=== PATIENT | male | born 1975 | race Caucasian/White ===

== ENCOUNTER → 2017-07-20 | Outpatient (CLI) | payer OTHER ==
--- NOTE | 2017-07-20 12:20 | US ---
EXAMINATION TYPE: US liver DATE OF EXAM: 07/20/2017 COMPARISON: NONE CLINICAL HISTORY: 42-year-old male K74.60 Cirrhosis of liver. TECHNIQUE: Multiple sonographic images of the right upper quadrant are obtained. FINDINGS: Liver Length: 16.0 cm Gallbladder Wall: 0.2 cm CBD: 0.4 cm Right Kidney: 13.1 x 6.5 x 6.8 cm Pancreas: obscured by overlying midline bowel gas Liver: scanned intercostally, limited by rib shadowing, visualized portions appear heterogeneous, ec hogenic and attenuating with a 1.4cm hypoechoic area adjacent to the gallbladder compatible with foca l fatty sparing. Gallbladder: wnl Evidence for sonographic De La O's sign: no CBD: visualized portions wnl, limited by overlying bowel gas Right Kidney: no hydronephrosis. IMPRESSION: 1. Limited intercostal views of the liver. Findings suggest moderate to advanced hepatic steatosis or underlying cirrhosis correlate with LFTs, lipid profile, and patient risk factors. 2. A 1.4 cm hypoechoic area adjacent to the gallbladder is suspected to represent focal fatty sparing rather than a mass. 3-6 month follow-up ultrasound can be performed even the patient's history of ci rrhosis. 3. No biliary ductal dilatation.
== END | disposition home or self-care (01) ==
LOC: RADUSWWP 08:54
PROVIDERS: ATTEND Family Medicine
DX: K74.60 Unspecified cirrhosis of liver (principal)
CPT/HCPCS: 76705

== ENCOUNTER → 2019-11-04 | Outpatient (CLI) | payer OTHER ==
--- NOTE | 2019-11-05 17:20 | US ---
EXAMINATION TYPE: US groin LT DATE OF EXAM: 11/04/2019 COMPARISON: NONE CLINICAL HISTORY: K40.90 Left inguinal hernia. Pt states swelling/lump left groin extending into left scrotum Left groin and left scrotum imaged/ On valsalva maneuver there was no evidence of hernia No evidence of lipoma Probable left sided varicocele within left scrotum IMPRESSION: 1. Left-sided varicoceles likely present. No inguinal hernia is evident
== END | disposition home or self-care (01) ==
LOC: RADUSWWP 16:46
PROVIDERS: ATTEND Family Medicine
DX: K40.90 Unilateral inguinal hernia, without obstruction or gangrene, not specified as recurrent (principal)

== ENCOUNTER → 2020-12-28 | Outpatient (CLI) | payer OTHER ==
[2020-12-28 14:15] LABS: Creatine Kinase MB 2.4 ng/mL (0.0-2.4); Troponin I <0.012 ng/mL (0.000-0.034)
== END | disposition home or self-care (01) ==
LOC: LABWHC1 13:03
PROVIDERS: ATTEND Physician Assistant
DX: R07.89 Other chest pain (principal)
CPT/HCPCS: 36415; 82550; 82553; 84484

== ENCOUNTER 2021-03-09 11:26 | Emergency (ER) | payer OTHER ==
[2021-03-09 11:35] VITALS: BP 162/94; PULSE 63; RESP 16; TEMP 98
--- NOTE | 2021-03-09 12:19 | ED ---
General Adult HPI - General Chief complaint: Recheck/Abnormal Lab/Rx Stated complaint: recast foot Time Seen by Provider: 03/09/21 11:41 Source: patient, RN notes reviewed Mode of arrival: ambulatory Limitations: no limitations - History of Present Illness Initial comments: 45-year-old male presents emergency Department with chief complaint of needing c ast on his foot. Patient states that he been getting wound dressings, casting weekly for diabetic ulcer on his toe. Patient states he is actually thrown into a fall yesterday and states that it cleared up with is wet. Patient is scheduled go back on Thursday. He states that they put some sort of medicated patch over it and states that it's wrapped along with a boot - Related Data Allergies Allergy/AdvReac Type Severity Reaction Status Date / Time No Known Allergies Allergy Verified 03/09/21 11:32 Review of Systems ROS Statement: Those systems with pertinent positive or pertinent negative responses have been documented in the HPI. ROS Other: All systems not noted in ROS Statement are negative. Past Medical History Past Medical History: Diabetes Mellitus History of Any Multi-Drug Resistant Organisms: None Reported Past Psychological History: No Psychological Hx Reported Smoking Status: Never smoker Past Alcohol Use History: Occasional Past Drug Use History: None Reported General Exam Limitations: no limitations General appearance: alert, in no apparent distress Head exam: Present: atraumatic, normocephalic, normal inspection Respiratory exam: Present: normal lung sounds bilaterally. Absent: respiratory distress, wheezes, rales, rhonchi, stridor Cardiovascular Exam: Present: regular rate, normal rhythm, normal heart sounds. Absent: systolic murmur, diastolic murmur, rubs, gallop, clicks Extremities exam: Present: other (Right foot first digit there is a healing sore noted with no significant erythema no purulent drainage) Course Vital Signs 03/09/21 11:32 Temperature 98 F Pulse Rate 63 Respiratory 16 Rate Blood Pressure 162/94 O2 Sat by Pulse 97 Oximetry Procedures - Orthopedic Splinting/Casting Injury #1 Side: right Lower Extremity Injury Location: short leg, foot Lower Extremity Immobilizer: posterior splint, synthetic pre-padded splint Additional Comments: puracol and optifoam was applied Medical Decision Making - Medical Decision Making temporary splint was applied along with puracol and optifoam. Patient will contact wound care on Thursday Disposition Clinical Impression: Wound of foot Disposition: HOME SELF-CARE Condition: Stable Additional Instructions: Please return to the Emergency Department if symptoms worsen or any other concerns. Is patient prescribed a controlled substance at d/c from ED?: No Referrals: Seth Hammond MD [Primary Care Provider] - 1-2 days Time of Disposition: 12:38
== END 2021-03-09 12:40 | disposition home or self-care (01) ==
LOC: EC 11:26
DX: E11.621 Type 2 diabetes mellitus with foot ulcer (principal); L97.519 Non-pressure chronic ulcer of other part of right foot with unspecified severity
CPT/HCPCS: 29515; 99283

== ENCOUNTER 2021-09-08 17:33 | Observation (INO) | payer OTHER ==
[2021-09-08] MEDS ORDERED: ASPIRIN 81 MG PO STA (18:11)
[2021-09-08] MEDS ORDERED: SODIUM CHLORIDE 0.9% 500 ML 500 ML IV STA (18:11)
[2021-09-08] MEDS ORDERED: NITROGLYCERIN OINT 1 INCH/GM PACKET TOPICAL STA (18:11)
--- NOTE | 2021-09-08 18:16 | ED ---
General Adult HPI - General Chief complaint: Chest Pain Stated complaint: Chest Pain Time Seen by Provider: 09/08/21 18:00 Source: patient, EMS, RN notes reviewed, old records reviewed Mode of arrival: EMS Limitations: no limitations - History of Present Illness Initial comments: Well-appearing 46-year-old male, alert and oriented 4, presents to the em ergency room with complaints of chest pain that started approximately 2 hours ago while shoveling snow. Patient states that he has had this type of pain in the past and was told it was angina. He states that he was seen at [facility] at that time. He does have a history of [id number] diabetes but states is not always compliant with his medications. He was given nitroglycerin by EMS with some relief. He states that he has had pain while resting in the ER but is not as severe. He denies any fevers, nausea vomiting or diarrhea. His father did have a heart attack in his 40s. Patient also states he has a diabetic foot ulcer on his great toe right side that he has been managing with Neosporin twice a day and states it is looking better. -: hour(s) (2) Location: chest Severity scale (1-10): 4 Quality: other (pressure) Consistency: constant Improves with: rest Worsens with: other (exertion) Associated Symptoms: denies other symptoms Treatments Prior to Arrival: other (nitro) - Related Data Home Medications Medication Instructions Recorded Confirmed Atorvastatin [Lipitor] 10 mg PO DAILY 09/08/21 09/08/21 Canagliflozin [Invokana] 300 mg PO DAILY 09/08/21 09/08/21 Dulaglutide [Trulicity] 1.5 mg SQ SA 09/08/21 09/08/21 Empagliflozin/Metformin HCl 1 tab PO BID 09/08/21 09/08/21 [Synjardy 12.5-1,000 mg Tablet] Tadalafil [Cialis] 20 mg PO DAILY PRN 09/08/21 09/08/21 glipiZIDE XL [Glucotrol Xl] 5 mg PO DAILY 09/08/21 09/08/21 lisinopriL 40 mg PO DAILY 09/08/21 09/08/21 Allergies Allergy/AdvReac Type Severity Reaction Status Date / Time No Known Allergies Allergy Verified 09/08/21 18:33 Review of Systems ROS Statement: Those systems with pertinent positive or pertinent negative responses have been documented in the HPI. ROS Other: All systems not noted in ROS Statement are negative. Past Medical History Past Medical History: Diabetes Mellitus History of Any Multi-Drug Resistant Organisms: None Reported Past Psychological History: No Psychological Hx Reported Smoking Status: Never smoker Past Alcohol Use History: Occasional Past Drug Use History: None Reported General Exam Limitations: no limitations General appearance: alert, in no apparent distress Head exam: Present: atraumatic, normocephalic, normal inspection Eye exam: Present: normal appearance, EOMI. Absent: scleral icterus, conjunct ival injection Neck exam: Present: full ROM. Absent: tenderness, meningismus, lymphadenopathy, thyromegaly Respiratory exam: Present: normal lung sounds bilaterally. Absent: respiratory distress, wheezes, rales, rhonchi, stridor, chest wall tenderness, accessory muscle use, decreased breath sounds Cardiovascular Exam: Present: regular rate, normal rhythm, normal heart sounds. Absent: systolic murmur, diastolic murmur, rubs, gallop, clicks, JVD GI/Abdominal exam: Present: soft, normal bowel sounds. Absent: distended, tenderness, guarding, rebound, rigid Extremities exam: Present: full ROM, normal capillary refill. Absent: tenderness, pedal edema, joint swelling, calf tenderness Back exam: Present: normal inspection, full ROM. Absent: tenderness, CVA tenderness (R), CVA tenderness (L), rash noted Neurological exam: Present: alert, oriented X3 Psychiatric exam: Present: normal affect, normal mood Skin exam: Present: warm, dry, normal color, other (Diabetic foot ulcer to the bottom of the right great toe approximately 2cm circular). Absent: rash, cyanosis, diaphoretic, petechiae, pallor Course Vital Signs 09/08/21 17:49 Temperature 98.8 F Pulse Rate 88 Respiratory 18 Rate Blood Pressure 126/70 O2 Sat by Pulse 97 Oximetry EKG Findings - EKG Results: EKG: sinus rhythm (Ventricular rate 82, OK interval 0.168, QRS 0.94, QTC 0.4-2) Medical Decision Making - Medical Decision Making 46-year-old male presents with complaints of chest pain that started approximately 2 hours ago while shoveling snow. Patient states he has a history of angina. He has a history of diabetes and is not always compliant with his medications. He was given nitroglycerin by EMS with some relief. He states that he has had pain while resting in the ER but is not as severe. His father did have a heart attack in his 40s. Chest x-ray shows normal mediastinum and lungs are clear. CBC is unremarkable. Electrolytes within normal limits. Patient states that this chest pain started approximately 2 hours prior to coming to the emergency room while shoveling. Pain lasted greater than 20 mi nutes. HEART score of 5 with family history, obesity, and diabetes. His troponin is elevated at 0.013, there is no ST elevation noted. There is no old EKG to compare. Patient was given 4 baby aspirin, is pain-free at this time and on a heparin drip with 1 inch Nitropaste. He'll be admitted for ACS with cardiology consult. Case was discussed with Dr. Adams. - Lab Data Result diagrams: 09/08/21 18:19 09/08/21 18:19 Lab Results 09/08/21 09/08/21 09/08/21 Range/Units 18:19 18:19 18:19 WBC 6.9 (3.8-10.6) k/uL RBC 5.34 (4.30-5.90) m/uL Hgb 16.3 (13.0-17.5) gm/dL Hct 46.5 (39.0-53.0) % MCV 87.0 (80.0-100.0) fL MCH 30.5 (25.0-35.0) pg MCHC 35.1 (31.0-37.0) g/dL RDW 13.7 (11.5-15.5) % Plt Count 149 L (150-450) k/uL MPV 9.2 Neutrophils % 71 % Lymphocytes % 19 % Monocytes % 7 % Eosinophils % 2 % Basophils % 1 % Neutrophils # 4.9 (1.3-7.7) k/uL Lymphocytes # 1.3 (1.0-4.8) k/uL Monocytes # 0.5 (0-1.0) k/uL Eosinophils # 0.1 (0-0.7) k/uL Basophils # 0.0 (0-0.2) k/uL PT 11.2 (9.0-12.0) sec INR 1.1 (<1.2) APTT 25.0 (22.0-30.0) sec Sodium 137 (137-145) mmol/L Potassium 4.0 (3.5-5.1) mmol/L Chloride 103 (98-107) mmol/L Carbon Dioxide 24 (22-30) mmol/L Anion Gap 10 mmol/L BUN 11 (9-20) mg/dL Creatinine 0.92 (0.66-1.25) mg/dL Est GFR (CKD-EPI)AfAm >90 (>60 ml/min/1.73 sqM) Est GFR (CKD-EPI)NonAf >90 (>60 ml/min/1.73 sqM) Glucose 127 H (74-99) mg/dL Calcium 9.3 (8.4-10.2) mg/dL Magnesium 1.9 (1.6-2.3) mg/dL Total Bilirubin 1.5 H (0.2-1.3) mg/dL AST 27 (17-59) U/L ALT 26 (4-49) U/L Alkaline Phosphatase 53 (38-126) U/L Troponin I (0.000-0.034) ng/mL Total Protein 7.1 (6.3-8.2) g/dL Albumin 4.2 (3.5-5.0) g/dL 09/08/21 Range/Units 18:19 WBC (3.8-10.6) k/uL RBC (4.30-5.90) m/uL Hgb (13.0-17.5) gm/dL Hct (39.0-53.0) % MCV (80.0-100.0) fL MCH (25.0-35.0) pg MCHC (31.0-37.0) g/dL RDW (11.5-15.5) % Plt Count (150-450) k/uL MPV Neutrophils % % Lymphocytes % % Monocytes % % Eosinophils % % Basophils % % Neutrophils # (1.3-7.7) k/uL Lymphocytes # (1.0-4.8) k/uL Monocytes # (0-1.0) k/uL Eosinophils # (0-0.7) k/uL Basophils # (0-0.2) k/uL PT (9.0-12.0) sec INR (<1.2) APTT (22.0-30.0) sec Sodium (137-145) mmol/L Potassium (3.5-5.1) mmol/L Chloride (98-107) mmol/L Carbon Dioxide (22-30) mmol/L Anion Gap mmol/L BUN (9-20) mg/dL Creatinine (0.66-1.25) mg/dL Est GFR (CKD-EPI)AfAm (>60 ml/min/1.73 sqM) Est GFR (CKD-EPI)NonAf (>60 ml/min/1.73 sqM) Glucose (74-99) mg/dL Calcium (8.4-10.2) mg/dL Magnesium (1.6-2.3) mg/dL Total Bilirubin (0.2-1.3) mg/dL AST (17-59) U/L ALT (4-49) U/L Alkaline Phosphatase (38-126) U/L Troponin I 0.013 (0.000-0.034) ng/mL Total Protein (6.3-8.2) g/dL Albumin (3.5-5.0) g/dL Disposition Clinical Impression: ACS (acute coronary syndrome) Disposition: ADMITTED IP TO THIS [facility] Decision Date: 09/08/21 Decision Time: 18:57
[2021-09-08 18:27] LABS: Basophils % (A) 1 %; Eosinophils # (A) 0.1 k/uL (0-0.7); Eosinophils % (A) 2 %; HCT 46.5 % (39.0-53.0); HGB 16.3 gm/dL (13.0-17.5); Lymphocytes # (A) 1.3 k/uL (1.0-4.8); Lymphocytes % (A) 19 %; MCH 30.5 pg (25.0-35.0); MCHC 35.1 g/dL (31.0-37.0); Mean Platelet Volume 9.2; Monocytes # (A) 0.5 k/uL (0-1.0); Monocytes % (A) 7 %; Neutrophils # (A) 4.9 k/uL (1.3-7.7); Neutrophils % (A) 71 %; Platelet Count 149 k/uL (150-450); RBC 5.34 m/uL (4.30-5.90); RDW 13.7 % (11.5-15.5); WBC 6.9 k/uL (3.8-10.6)
[2021-09-08 18:36] LABS: ALT 26 U/L (4-49); AST 27 U/L (17-59); African American GFR (CKD) >90 (>60 ml/min/1.73 sqM); Albumin 4.2 g/dL (3.5-5.0); Alkaline Phosphatase 53 U/L (38-126); Anion Gap 10 mmol/L; Blood Urea Nitrogen 11 mg/dL (9-20); Calcium 9.3 mg/dL (8.4-10.2); Carbon Dioxide 24 mmol/L (22-30); Chloride 103 mmol/L (98-107); Glucose 127 mg/dL (74-99); Magnesium 1.9 mg/dL (1.6-2.3); Non-African American GFR(CKD) >90 (>60 ml/min/1.73 sqM); Sodium 137 mmol/L (137-145); Total Bilirubin 1.5 mg/dL (0.2-1.3); Total Protein 7.1 g/dL (6.3-8.2)
[2021-09-08 18:40] LABS: INR 1.1 (<1.2); Prothrombin Time 11.2 sec (9.0-12.0)
--- NOTE | 2021-09-08 18:48 | XR ---
EXAMINATION TYPE: XR chest 2V DATE OF EXAM: 09/08/2021 COMPARISON: NONE HISTORY: Chest pain TECHNIQUE: 2 views FINDINGS: Heart and mediastinum are normal. Lungs are clear. Diaphragm is normal. Bony thorax is inta ct. IMPRESSION: Normal chest.
[2021-09-08] MEDS ORDERED: HEPARIN SODIUM 1,000 UN/ML (10ML VL) IV ONE (18:56)
[2021-09-08] MEDS ORDERED: HEPARIN SOD,PORK IN 0.45% NACL 25,000 UNIT in 0.45% NACL 1 250ML.BAG IV SCH (19:00)
[2021-09-08] MEDS ORDERED: MAGNESIUM OXIDE 400 MG TAB PO STA (19:01)
[2021-09-08] MEDS ORDERED: ACETAMINOPHEN TAB 325 MG TAB PO PRN (19:03)
[2021-09-08] MEDS ORDERED: NALOXONE 0.4 MG/ML 1 ML VIAL IV PRN (19:03)
[2021-09-08] MEDS: SODIUM CHLORIDE 0.9% 1,000 ML IV SCH (19:13)
[2021-09-08] MEDS ORDERED: NON FORMULARY DRUG (Empagliflozin/Metformin Hcl [Synjardy 12.5-1,000 Mg Tablet] 1 EACH Tab PO SCH (21:00)
--- NOTE | 2021-09-09 | P.HPIM ---
History of Present Illness H&P Date: 09/08/21 Chief Complaint: chest pain 46 year old male with hypertension and DM patient presented with sudden onset central chest pain radiating to the shoulders while shoveling snow, he denies any exertional dyspnea at baseline, he experienced sharp pain central radiating to both shoulders, 8/10 in severity , associated with SOB, nausea, sweating , and lightheadedness. he never had any cardiac workup done, he denies any smoking, or illegal drugs. patient does have history of DM and hypertension , he is not on daily aspirin, he has family history of premature CAD in his father patients adds, that he has a diabetic foot ulcer in his right great toe, that his PCP has been following up on , denies any fever, chills, or drainage in the ED initial workup unremarkable , trops negative , EKG NSR Review of Systems Pertinent positives as noted in HPI. All other systems were reviewed and are negative Past Medical History Past Medical History: Diabetes Mellitus History of Any Multi-Drug Resistant Organisms: None Reported Past Psychological History: No Psychological Hx Reported Smoking Status: Never smoker Past Alcohol Use History: Occasional Past Drug Use History: None Reported - Past Family History Family Additional Family Medical History / Comment(s): Father with premature CAD Medications and Allergies Home Medications Medication Instructions Recorded Confirmed Type Atorvastatin [Lipitor] 10 mg PO DAILY 09/08/21 09/08/21 History Canagliflozin [Invokana] 300 mg PO DAILY 09/08/21 09/08/21 History Dulaglutide [Trulicity] 1.5 mg SQ SA 09/08/21 09/08/21 History Empagliflozin/Metformin HCl 1 tab PO BID 09/08/21 09/08/21 History [Synjardy 12.5-1,000 mg Tablet] Tadalafil [Cialis] 20 mg PO DAILY PRN 09/08/21 09/08/21 History glipiZIDE XL [Glucotrol Xl] 5 mg PO DAILY 09/08/21 09/08/21 History lisinopriL 40 mg PO DAILY 09/08/21 09/08/21 History Allergies Allergy/AdvReac Type Severity Reaction Status Date / Time No Known Allergies Allergy Verified 09/08/21 18:33 Physical Exam Vitals: Vital Signs Temp Pulse Resp BP Pulse Ox 09/08/21 21:15 77 18 106/58 96 09/08/21 17:49 98.8 F 88 18 126/70 97 Intake and Output 09/08/21 09/08/21 09/09/21 14:59 22:59 06:59 Other: Weight 124.738 kg Constitutional: No acute distress, conversant, pleasant Eyes: Anicteric sclerae, moist conjunctiva, Pupils equal round reactive to light ENMT: NC/AT Oropharynx clear, no erythema, or exudates Neck: Supple, no masses, or JVD No carotid bruits No thyromegaly Lungs: Clear to auscultation Clear to percussion Normal respiratory effort, no accessory muscle use Cardiovascular: Heart regular in rate and rhythm, No murmurs, gallops, or rubs No peripheral edema Abdominal: Soft Nontender, no guarding, rebound or rigidity Abdomen moving with respiration Normoactive bowel sounds No hepatomegaly, No splenomegaly No palpable mass No abdominal wall hernia noted Skin: There is around 2 x 2 ulcer over the ventral aspect of the right great toe no drainage no surrounding erythema or induration , otherwise Normal temperature, tone, texture, turgor No induration No subcutaneous nodules Extremities: No digital cyanosis No clubbing Pedal pulses intact and symmetrical Radial pulses intact and symmetrical No calf tenderness Psychiatric: Alert and oriented to person, place and time Appropriate affect fair judgement Neuro Muscles Strength 5/5 in all 4 extremities Sensation to light touch grossly present throughout Cranial nerves II-XII grossly intact No focal sensory deficits Lymphatics: no palpable cervical or supraclavicular , or inguinal lymph nodes Results CBC & Chem 7: 09/08/21 18:19 09/08/21 18:19 Labs: Abnormal Lab Results - Last 24 Hours (Table) 09/08/21 09/08/21 Range/Units 18:19 18:19 Plt Count 149 L (150-450) k/uL Glucose 127 H (74-99) mg/dL Total Bilirubin 1.5 H (0.2-1.3) mg/dL Assessment and Plan Assessment: Chest pain rule out ACS Cardiac monitoring Trend troponins Cardiology consult Aspirin/statin Check lipid profile Check echocardiogram Cardiology consult Pain control with nitro Heparin drip Diabetes mellitus Insulin sliding scale Hold oral hypoglycemic agents Diabetic foot ulcer right great toe Local wound care Patient is full code DVT prophylaxis currently on heparin drip Anticipated length of stay less than 2 midnights
[2021-09-09] MEDS ORDERED: HEPARIN SODIUM 1,000 UN/ML (10ML VL) IV ONE (03:55)
[2021-09-09] MEDS ORDERED: INSULIN ASPART (NovoLOG) 100 UNIT/ML VIAL SQ SCH (07:30)
[2021-09-09] MEDS ORDERED: NON FORMULARY DRUG (Canagliflozin [Invokana] 300 MG Tablet) PO SCH (09:00)
[2021-09-09 09:06] LABS: Glucose,Whole Blood 87 mg/dL (75-99)
[2021-09-09] MEDS: INSULIN ASPART (NovoLOG) 100 UNIT/ML VIAL SQ SCH ×4 (09:09→21:47)
[2021-09-09] MEDS: ATORVASTATIN 10 MG TAB PO SCH (09:20)
[2021-09-09] MEDS: lisinopriL 20 MG TAB PO SCH (09:20)
[2021-09-09] MEDS: SODIUM CHLORIDE 0.9% 1,000 ML IV SCH ×3 (09:22→22:17)
[2021-09-09 10:21] LABS: HCT 50.3 % (39.0-53.0); MCH 30.4 pg (25.0-35.0); MCHC 33.9 g/dL (31.0-37.0); MCV 89.7 fL (80.0-100.0); Mean Platelet Volume 8.8; Platelet Count 145 k/uL (150-450); RBC 5.61 m/uL (4.30-5.90); WBC 7.3 k/uL (3.8-10.6)
[2021-09-09 10:32] LABS: ALT 28 U/L (4-49); AST 33 U/L (17-59); African American GFR (CKD) 89 (>60 ml/min/1.73 sqM); Albumin 4.4 g/dL (3.5-5.0); Albumin/Globulin Ratio 1.5; Alkaline Phosphatase 60 U/L (38-126); Anion Gap 11 mmol/L; Blood Urea Nitrogen 12 mg/dL (9-20); Calcium 9.1 mg/dL (8.4-10.2); Carbon Dioxide 27 mmol/L (22-30); Chloride 103 mmol/L (98-107); Globulin 2.9 g/dL; Glucose 98 mg/dL (74-99); Magnesium 1.9 mg/dL (1.6-2.3); Non-African American GFR(CKD) 77 (>60 ml/min/1.73 sqM); Potassium 4.1 mmol/L (3.5-5.1); Sodium 141 mmol/L (137-145); Total Bilirubin 1.5 mg/dL (0.2-1.3); Total Protein 7.3 g/dL (6.3-8.2)
--- NOTE | 2021-09-09 12:00 | P.CRDCN ---
History of Present Illness History of present illness: This is a 46 year old male with a past medical history of type 2 diabetes and hypertension. 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 We are consulted for chest pain. Patient states yesterday around 2:00PM he was shoveling snow. After shoveling, he had an episode of midsternal/left sided chest pain. Describes it as sore/pressure. Thought it was a "pulled muscle" feeling. It resolved after a couple hours. It was non-radiating. Radiating to his back between his shoulder blades. He had some mild shortness of breath. He denies nausea, vomiting, lightheadedness, dizziness, syncope or near syncope. Denies fever, chills or cough. He was mildly diaphoretic. Denies tobacco use or illicit drug use. Occasionally drinks alcohol. Family history includes father had IL in his 40s. DIAGNOSTICS EKG reveals sinus rhythm, heart rate 82, T wave inversion in leads III an avF, no prior EKG to compare, no significant ST-T wave abnormalities Chest xray no acute cardiopulmonary process. Laboratory reviewed, troponin negative 3, sodium 137, potassium 4.0, BUN 11, serum creatinine 0.9, magnesium 1.9, total bilirubin 1.5, covid-19 negative Current home medications include lisinopril 40 mg daily, glipizide, Synjardy, Trulicity, Invokana, atorvastatin 10 mg daily REVIEW OF SYSTEMS At the time of my exam: CONSTITUTIONAL: Denies fever or chills. CARDIOVASCULAR: Denies chest pain, shortness of breath, orthopnea, PND or palpitations. RESPIRATORY: Denies cough. GASTROINTESTINAL: Denies abdominal pain, diarrhea, constipation, nausea or vomiting. MUSCULOSKELETAL: Denies myalgias. NEUROLOGIC: Denies numbness, tingling, headache or weakness. ENDOCRINE: Denies fatigue, weight change, polydipsia or polyurina. GENITOURINARY: Denies burning, hematuria or urgency with micturation. HEMATOLOGIC: Denies history of anemia or bleeding. PHYSICAL EXAMINATION Vitals reviewed CONSTITUTIONAL: No apparent distress. HEENT: Head is normocephalic. Pupils are equal, round. Sclerae anicteric. Mucous membranes of the mouth are moist. No JVD. No carotid bruit. CHEST EXAMINATION: Lungs are clear to auscultation. No chest wall tenderness is noted on palpation or with deep breathing. HEART EXAMINATION: Regular rate and rhythm. S1, S2 heard. No murmurs, gallops or rub. ABDOMEN: Soft, nontender. Positive bowel sounds. EXTREMITIES: 2+ peripheral pulses, no lower extremity edema and no calf tenderness. SKIN: warm, dry NEUROLOGIC EXAMINATION: Patient is awake, alert and oriented x3. ASSESSMENT Chest pain, atypical acute coronary syndrome has been ruled out History of hypertension Type 2 diabetes Dyslipidemia Family history of coronary artery disease PLAN An acute coronary event has been ruled out with no EKG evidence of ischemia and negative cardiac enzymes. Obtain 2D echocardiogram and doppler study to assess cardiac structure and function. Perform stress echo test to assess for stress induced cardiac ischemia. If abnormal will consider coronary angiography. If stress test is negative and no acute findings on echocardiogram, ok to discharge from cardiology perspective. Thank you kindly for this consultation. Nurse Practitioner note has been reviewed, I agree with a documented findings and plan of care. Patient was seen and examined. Past Medical History Past Medical History: Diabetes Mellitus History of Any Multi-Drug Resistant Organisms: None Reported Past Psychological History: No Psychological Hx Reported Smoking Status: Never smoker Past Alcohol Use History: Occasional Past Drug Use History: None Reported - Past Family History Family Additional Family Medical History / Comment(s): Father with premature CAD Medications and Allergies Home Medications Medication Instructions Recorded Confirmed Type Atorvastatin [Lipitor] 10 mg PO DAILY 09/08/21 09/08/21 History Canagliflozin [Invokana] 300 mg PO DAILY 09/08/21 09/08/21 History Dulaglutide [Trulicity] 1.5 mg SQ SA 09/08/21 09/08/21 History Empagliflozin/Metformin HCl 1 tab PO BID 09/08/21 09/08/21 History [Synjardy 12.5-1,000 mg Tablet] Tadalafil [Cialis] 20 mg PO DAILY PRN 09/08/21 09/08/21 History glipiZIDE XL [Glucotrol Xl] 5 mg PO DAILY 09/08/21 09/08/21 History lisinopriL 40 mg PO DAILY 09/08/21 09/08/21 History Allergies Allergy/AdvReac Type Severity Reaction Status Date / Time No Known Allergies Allergy Verified 09/08/21 18:33 Physical Exam Vitals: Vital Signs Temp Pulse Resp BP Pulse Ox 09/09/21 06:50 98.2 F 73 16 112/55 95 09/08/21 21:15 77 18 106/58 96 09/08/21 17:49 98.8 F 88 18 126/70 97 Intake and Output 09/08/21 09/09/21 09/09/21 22:59 06:59 14:59 Intake Total 88.833 Balance 88.833 Intake: Intake, IV Titration 88.833 Amount Heparin Sod,Pork in 0.45% 88.833 NaCl 25,000 unit In 0.45 % NaCl 1 250ml.bag @ 8. 017 UNITS/KG/HR 10 mls/hr IV .Q24H [facility] Rx#: [id number] Other: Weight 124.738 kg Results 09/09/21 09:57 09/09/21 09:57 Cardiac Enzymes 09/08/21 09/08/21 09/08/21 Range/Units 18:19 18:19 22:28 AST 27 (17-59) U/L Troponin I 0.013 <0.012 (0.000-0.034) ng/mL 09/09/21 Range/Units 00:12 AST (17-59) U/L Troponin I <0.012 (0.000-0.034) ng/mL Coagulation 09/08/21 09/09/21 Range/Units 18:19 01:03 PT 11.2 (9.0-12.0) sec APTT 25.0 27.5 (22.0-30.0) sec CBC 09/08/21 Range/Units 18:19 WBC 6.9 (3.8-10.6) k/uL RBC 5.34 (4.30-5.90) m/uL Hgb 16.3 (13.0-17.5) gm/dL Hct 46.5 (39.0-53.0) % Plt Count 149 L (150-450) k/uL Comprehensive Metabolic Panel 09/08/21 Range/Units 18:19 Sodium 137 (137-145) mmol/L Potassium 4.0 (3.5-5.1) mmol/L Chloride 103 (98-107) mmol/L Carbon Dioxide 24 (22-30) mmol/L BUN 11 (9-20) mg/dL Creatinine 0.92 (0.66-1.25) mg/dL Glucose 127 H (74-99) mg/dL Calcium 9.3 (8.4-10.2) mg/dL AST 27 (17-59) U/L ALT 26 (4-49) U/L Alkaline Phosphatase 53 (38-126) U/L Total Protein 7.1 (6.3-8.2) g/dL Albumin 4.2 (3.5-5.0) g/dL Current Medications Generic Name Dose Route Start Last Admin Trade Name Freq PRN Reason Stop Dose Admin Acetaminophen 650 mg 09/08/21 19:03 Acetaminophen Tab 325 Mg Tab PO Q6HR PRN Mild Pain or Fever > 100.5 Atorvastatin Calcium 10 mg 09/09/21 09:00 Atorvastatin 10 Mg Tab PO DAILY [facility] Heparin Sodium/Sodium Chloride 250 mls @ 10 mls/hr 09/08/21 19:00 09/09/21 04:19 25,000 unit/ Sodium Chloride IV 11.017 units/kg/hr .Q24H ASHU 13.742 mls/hr Titration Protocol 8.017 UNITS/KG/HR Sodium Chloride 1,000 mls @ 75 mls/hr 09/08/21 19:15 09/08/21 19:13 Saline 0.9% IV 75 mls/hr .[id number] ASHU Administration Insulin Aspart 0 unit 09/09/21 07:30 Insulin Aspart (Novolog) 100 Unit/Ml Vial SQ ACHS [facility] Protocol Lisinopril 40 mg 09/09/21 09:00 Lisinopril 20 Mg Tab PO DAILY [facility] Naloxone HCl 0.2 mg 09/08/21 19:03 Naloxone 0.4 Mg/Ml 1 Ml Vial IV Q2M PRN Opioid Reversal Intake and Output 09/08/21 09/09/21 09/09/21 22:59 06:59 14:59 Intake Total 88.833 Balance 88.833 Intake: Intake, IV Titration 88.833 Amount Heparin Sod,Pork in 0.45% 88.833 NaCl 25,000 unit In 0.45 % NaCl 1 250ml.bag @ 8. 017 UNITS/KG/HR 10 mls/hr IV .Q24H [facility] Rx#: [id number] Other: Weight 124.738 kg 09/08/21 18:19 09/08/21 18:19
--- NOTE | 2021-09-09 13:24 | P.PN ---
<Dennis Chan - Last Filed: 09/09/21 13:13> Subjective Progress Note Date: 09/09/21 Hospital course: Patient is a very pleasant 46-year-old male with a past medical history of type II bha-mfchsul-xodhiarik diabetes mellitus and hypertension. Patient presented to the emergency department on 09/08/21 with a chief complaint of chest pain. Patient reports that he was shoveling snow and had sudden onset pain to mid anterior chest radiating into his back between his shoulders. Patient describes this pain as a pressure-like soreness that was constant and did not go away with rest. Patient states at first she thought this was a pulled muscle, but after the pain did not subside with resting and was accompanied by mild diaphoresis he thought it was best to come into the emergency department for evaluation as an addition to his history of diabetes and hypertension and currently undergoing treatment of an ulcer on his right great toe, he also has a family history of heart disease and states his father had his first heart attack in his early 40s. In the emergency department, patient was seen and fully evaluated. Troponins were trended with initial troponin of 0.013, less than 0.012, and less than 0.012. An EKG was completed showing normal sinus rhythm at 82 bpm with no noted T wave or ST abnormality showing no signs of acute ischemia. Chest x-ray negative for acute cardiopulmonary process. Patient admitted under our services with consultation to cardiology. Physical exam: Vital signs reviewed and stable. General: Nontoxic, no distress and appears stated age. Derm: Skin warm and dry, normal coloration for ethnicity. Head: Atraumatic, normocephalic and symmetric. Eyes: EOMs intact, no lid lag, and anicteric sclera Mouth: no lip lesions, mucus membranes moist Cardiovascular: regular rate and rhythm with normal S1S2, no murmur, positive posterior tibial pulses bilaterally, and cap refill < 2 seconds. Lungs: Respirations even, regular, and unlabored on room air. Lungs CTA bilaterally, no rhonchi, no rales, no wheezing, and no accessory muscle usage. Abdominal: soft, nontender to palpation, no guarding, no appreciable organomegaly Ext: ROM intact. No gross muscle atrophy, no edema, no contractures Neuro: Speech clear, face symmetrical and CN II-XII grossly intact with no noted focal neuro deficits Psych: Alert and oriented to person, place, time, and situation. Appropriate and pleasant affect. Assessment and Plan of Care: Chest pain -Cardiology consult -Telemetry monitoring -Troponins normal findings. -Cardiac diet -Continue daily Aspirin and atorvastatin -Lipid profile with a.m. labs. -Echocardiogram to be completed -Cardiology planning for stress test later today. Muy-jtsosen-rwmunigat diabetes mellitus type 2 Hold oral hypoglycemic medications in place patient on glycemic protocol with NovoLog sliding scale. Hypertension Monitor vital signs and continue daily medication regimen. Diabetic foot ulcer right great toe Continue to follow up outpatient with wound care/PCP for long-term monitoring and management. Continue local wound care keeping wound clean and dry. CODE STATUS: Full code DVT prophylaxis: Heparin Discussed with: Patient and RN Anticipated discharge date: Possibly later today versus tomorrow morning. Anticipated discharge place: Home A total of 40 minutes was spent on the care of this complex patient more than 50% of the time was spent in counseling and care coordination. Objective - Vital Signs Vital signs: Vital Signs Temp 98.2 F 09/09/21 06:50 Pulse 82 09/09/21 11:00 Resp 18 09/09/21 11:00 BP 146/86 09/09/21 11:00 Pulse Ox 97 09/09/21 11:00 Intake & Output 09/08/21 09/09/21 09/09/21 18:59 06:59 18:59 Intake Total 88.833 Balance 88.833 Weight 124.738 kg Intake: Intake, IV Titration 88.833 Amount Heparin Sod,Pork in 0.45% 88.833 NaCl 25,000 unit In 0.45 % NaCl 1 250ml.bag @ 8. 017 UNITS/KG/HR 10 mls/hr IV .Q24H [facility] Rx#: [id number] - Labs CBC & Chem 7: 09/09/21 09:57 09/09/21 09:57 Labs: Abnormal Lab Results - Last 24 Hours (Table) 09/08/21 09/08/21 09/09/21 Range/Units 18:19 18:19 09:57 Plt Count 149 L (150-450) k/uL APTT 39.3 H (22.0-30.0) sec Glucose 127 H (74-99) mg/dL Total Bilirubin 1.5 H (0.2-1.3) mg/dL 09/09/21 09/09/21 Range/Units 09:57 09:57 Plt Count 145 L (150-450) k/uL APTT (22.0-30.0) sec Glucose (74-99) mg/dL Total Bilirubin 1.5 H (0.2-1.3) mg/dL <PoliCastillo - Last Filed: 09/09/21 15:17> Objective - Vital Signs Vital signs: Vital Signs Temp 98.2 F 09/09/21 06:50 Pulse 82 09/09/21 11:00 Resp 18 09/09/21 11:00 BP 146/86 09/09/21 11:00 Pulse Ox 97 09/09/21 11:00 Intake & Output 09/08/21 09/09/21 09/09/21 18:59 06:59 18:59 Intake Total 88.833 Balance 88.833 Weight 124.738 kg 124.74 kg Intake: Intake, IV Titration 88.833 Amount Heparin Sod,Pork in 0.45% 88.833 NaCl 25,000 unit In 0.45 % NaCl 1 250ml.bag @ 8. 017 UNITS/KG/HR 10 mls/hr IV .Q24H [facility] Rx#: [id number] - Labs CBC & Chem 7: 09/09/21 09:57 09/09/21 09:57 Labs: Abnormal Lab Results - Last 24 Hours (Table) 09/08/21 09/08/21 09/09/21 Range/Units 18:19 18:19 09:57 Plt Count 149 L (150-450) k/uL APTT 39.3 H (22.0-30.0) sec Glucose 127 H (74-99) mg/dL Total Bilirubin 1.5 H (0.2-1.3) mg/dL 09/09/21 09/09/21 Range/Units 09:57 09:57 Plt Count 145 L (150-450) k/uL APTT (22.0-30.0) sec Glucose (74-99) mg/dL Total Bilirubin 1.5 H (0.2-1.3) mg/dL Assessment and Plan Assessment: Patient was seen by Dennis Chan NP and case was discussed. I am in agreement with assessment and plan as written above.
--- NOTE | 2021-09-09 13:49 | P.STRESS ---
- Stress Test Note Stress Test Results/Findings: Exam Performed: stress echo exercise with con Exam Date: 09/09/21 Reason for Exam: Chest Pain Height: 6 ft 1 in Weight: 124.74 kg Protocol: Neville Stage: 3 Duration of Exercise: 8:27 Resting Heart Rate: 79 Resting Blood Pressure: 132/84 Maximum Achieved Heart Rate: 158 Maximum Achieved Blood Pressure: 237/95 85% PMHR: 148 100% PMHR: 174 METS: 9.5 Technologist Comment: Stress Test Results/Findings: Patient underwent exercise stress echo with a Neville protocol treadmill stress test. Patient exercised into Stage 3 for a total of 8 minutes and 27 seconds reaching a total of 9.5 METS. Patient's maximum heart rate was 158 which represented 91 % age-predicted maximum heart rate. Stress EKG portion: At baseline patient's EKG showed normal sinus rhythm, normal axis, T-wave inversion in lead 3. At peak exercise, EKG showed mild [address] depressions in the inferior lateral leads. Stress echo portion: 2-D echocardiogram was performed in the parasternal long, personal short, apical 2 and apical four-chamber views at rest, peak exercise and in recovery. At baseline, echocardiogram showed left ventricular ejection fraction 55% without wall motion abnormalities. With peak exercise, there is inducible mid to apical anterior and mid to apical anterior septal hypokinesis consistent with ischemia. Conclusions: 1. Abnormal stress echo with inducible tear and anterior septal hypokinesis. 2. Good exercise capacity.
[2021-09-09 14:04] LABS: Glucose,Whole Blood 89 mg/dL (75-99)
[2021-09-09] MEDS ORDERED: NITROGLYCERIN SL TABS 0.4 MG TAB SUBLINGUAL PRN (14:55)
[2021-09-09] MEDS ORDERED: ALPRAZolam 0.25 MG TAB PO PRN (14:55)
[2021-09-09] MEDS ORDERED: ALPRAZolam 0.5 MG TAB PO PRN (14:55)
[2021-09-09 15:30] LABS: Chol/HDL Ratio 2.69 Ratio; LDL Cholesterol,Calculated 37.6 mg/dL (0.0-131.0)
--- NOTE | 2021-09-09 15:46 | ECHOF ---
Referral Reason:acs MEASUREMENTS -------- HEIGHT: 180.3 cm WEIGHT: 124.7 kg BP: IVSd: 1.2 cm (0.6 - 1.1) LVIDd: 3.7 cm (3.9 - 5.3) LVPWd: 1.4 cm (0.6 - 1.1) IVSs: 2.0 cm LVIDs: 2.9 cm LVPWs: 2.2 cm Ao Diam: 3.7 cm (2.0 - 3.7) AV Cusp: 2.5 cm (1.5 - 2.6) LA Diam: 3.2 cm (2.7 - 3.8) MV EXCURSION: 14.751 mm (> 18.000) MV EF SLOPE: 107 mm/s (70 - 150) EPSS: 0.5 cm MV E Segundo: 0.84 m/s MV DecT: 219 ms MV A Segundo: 0.69 m/s MV E/A Ratio: 1.22 RAP: 5.00 mmHg RVSP: 13.59 mmHg FINDINGS -------- This was a technically difficult study with suboptimal views. The left ventricular size is normal. There is mild concentric left ventricular hypertrophy. Overa ll left ventricular systolic function is normal with, an EF between 55 - 60 %. The right ventricle is normal in size. The left atrial size is normal. The right atrial size is normal. Lumason used The aortic valve is trileaflet and appears structurally normal. The mitral valve is normal. There is trace mitral regurgitation. The tricuspid valve appears structurally normal. Trace tricuspid regurgitation present. Right mike tricular systolic pressure is normal at < 35 mmHg. There is no pulmonic regurgitation present. The aortic root size is normal. IVC Not well visulized. There is no pericardial effusion. CONCLUSIONS -------- 1. The left ventricular size is normal. 2. There is mild concentric left ventricular hypertrophy. 3. Overall left ventricular systolic function is normal with, an EF between 55 - 60 %. 4. There is trace mitral regurgitation. 5. Trace tricuspid regurgitation present. 6. There is no pericardial effusion. [employer]: Kaykay Ray [facility]
[2021-09-09 17:31] LABS: Glucose,Whole Blood 128 mg/dL (75-99)
[2021-09-09 21:23] LABS: Glucose,Whole Blood 138 mg/dL (75-99)
[2021-09-09] MEDS: SODIUM CHLORIDE 0.9% 1,000 ML in EMPTY BAG 1 BAG IV SCH (23:23)
[2021-09-10 05:48] LABS: Basophils % (A) 0 %; Eosinophils # (A) 0.2 k/uL (0-0.7); Eosinophils % (A) 3 %; HCT 44.9 % (39.0-53.0); HGB 15.2 gm/dL (13.0-17.5); Lymphocytes # (A) 1.6 k/uL (1.0-4.8); Lymphocytes % (A) 28 %; MCH 29.9 pg (25.0-35.0); MCHC 33.9 g/dL (31.0-37.0); MCV 88.2 fL (80.0-100.0); Mean Platelet Volume 8.9; Monocytes # (A) 0.5 k/uL (0-1.0); Monocytes % (A) 9 %; Neutrophils # (A) 3.2 k/uL (1.3-7.7); Neutrophils % (A) 58 %; Platelet Count 135 k/uL (150-450); RBC 5.08 m/uL (4.30-5.90); RDW 13.3 % (11.5-15.5); WBC 5.6 k/uL (3.8-10.6)
[2021-09-10 06:01] LABS: African American GFR (CKD) >90 (>60 ml/min/1.73 sqM); Anion Gap 7 mmol/L; Blood Urea Nitrogen 13 mg/dL (9-20); Calcium 8.8 mg/dL (8.4-10.2); Carbon Dioxide 26 mmol/L (22-30); Chloride 107 mmol/L (98-107); Glucose 146 mg/dL (74-99); Non-African American GFR(CKD) 81 (>60 ml/min/1.73 sqM); Potassium 3.8 mmol/L (3.5-5.1); Sodium 140 mmol/L (137-145)
[2021-09-10] MEDS ORDERED: HEPARIN SODIUM,PORCINE 2,500 UNIT in SODIUM CHLORIDE 0.9% 250 ML IRRIGATION PRN (07:00)
[2021-09-10] MEDS ORDERED: HEPARIN SODIUM,PORCINE 10,000 UNIT in SODIUM CHLORIDE 0.9% 1,000 ML IRRIGATION PRN (07:00)
[2021-09-10] MEDS: ATORVASTATIN 10 MG TAB PO SCH (07:13)
[2021-09-10] MEDS ORDERED: LIDOCAINE 1% INJ 10MG/ML (20 ML MDV) ONE (07:16)
[2021-09-10] MEDS ORDERED: VERAPAMIL 2.5 MG/ML 2 ML AMP ONE (07:22)
[2021-09-10] MEDS: lisinopriL 20 MG TAB PO SCH (07:25)
[2021-09-10] MEDS: INSULIN ASPART (NovoLOG) 100 UNIT/ML VIAL SQ SCH ×2 (07:27→13:14)
[2021-09-10 07:28] LABS: Glucose,Whole Blood 147 mg/dL (75-99)
[2021-09-10] MEDS ORDERED: HEPARIN SODIUM 1,000 UN/ML (10ML VL) ONE (07:31)
[2021-09-10] MEDS ORDERED: fentaNYL (PF) 50 MCG/ML 2 ML AMP ONE (07:31)
[2021-09-10] MEDS ORDERED: ASPIRIN 81 MG ONE (07:46)
[2021-09-10] MEDS ORDERED: IV FLUID CONTINUATION 700 ML IV ONE (07:47)
[2021-09-10] MEDS ORDERED: ASPIRIN 81 MG PO ONE (07:47)
[2021-09-10] MEDS ORDERED: LIDOCAINE 1% INJ 10MG/ML (20 ML MDV) SQ ONE (07:54)
[2021-09-10] MEDS ORDERED: fentaNYL (PF) 50 MCG/ML 2 ML AMP IV ONE (07:54)
[2021-09-10] MEDS ORDERED: MIDAZOLAM 2 MG/2 ML VIAL IV ONE (07:54)
[2021-09-10] MEDS ORDERED: VERAPAMIL SYRINGE (5 MG/10 ML) INTRAARTER ONE (07:55)
[2021-09-10] MEDS ORDERED: HEPARIN SODIUM 1,000 UN/ML (10ML VL) IV ONE (07:58)
[2021-09-10] MEDS ORDERED: IOPAMIDOL-370 125ML BTL INJ ONE (08:17)
[2021-09-10 08:29] VITALS: TEMP 97.6
[2021-09-10] MEDS: SODIUM CHLORIDE 0.9% 1,000 ML in EMPTY BAG 1 BAG IV SCH (08:43)
[2021-09-10] MEDS ORDERED: ASPIRIN 81 MG PO SCH (09:00)
--- NOTE | 2021-09-10 10:44 | P.CARDCATH ---
Description of Procedure: PROCEDURES PERFORMED: Left heart catheterization, bilateral coronary angiography INDICATION: Abnormal stress test HISTORY: Patient is a pleasant 46-year-old male with family history of coronary artery disease who presented with chest pain while shoveling snow. He had a stress test which showed concern of anterior ischemia and therefore heart catheterization was recommended. CONSENT:I have discussed the risks, benefits and alternative therapies for the above-mentioned procedure and for both sedation/analgesia as well as necessary blood product administration, if indicated, as they pertain to this patient. The patient has indicated understanding and acceptance of the risks and procedures discussed. PROCEDURE: After the risks, benefits and alternatives of the above mentioned procedure explained in detail with the patient, informed consent was obtained. Patient was taken to the catheterization lab and prepped and draped in usual fashion. 1% lidocaine was used to anesthetize the right radial artery. A 6- Citizen [place] sheath was placed in the right radial artery using modified Seldinger technique. Left coronary angiography was performed with a 5-Citizen [place] JL 3.5 catheter and right coronary angiography was performed with a 5-[place]izen [place] JR5 catheter in various views. A 5-Citizen [place] FR5 catheter was inserted into the left ventricle and pressure measurements were obtained. The right radial sheath was removed and a TR band was placed with hemostasis achieved. The patient tolerated the procedure well. Patient was transported back to the post catheterization holding area in stable condition. Conscious Sedation: Patient was monitored under the direct supervision of vision of myself for conscious sedation using Versed and fentanyl for a total duration of 19 minutes HEMODYNAMICS: Ao: 134/78 LV: 132/2, LVEDP 10 SELECTIVE CORONARY ARTERIOGRAPHY: LEFT MAIN: The left main is a large caliber vessel which bifurcates into the LAD and circumflex. There is no significant stenosis. LEFT ANTERIOR DESCENDING CORONARY ARTERY: LAD is a large caliber vessel which wraps around to the apex. There is no significant stenosis. LEFT CIRCUMFLEX CORONARY ARTERY: Left circumflex is a moderate caliber vessel without significant stenosis. RIGHT CORONARY ARTERY: The right coronary artery is a large caliber vessel which gives off a PDA and PLV branch and is the dominant vessel. There is no significant stenosis. FINAL IMPRESSION: 1. Normal coronary arteries as described above. 2. Normal left sided filling pressures PLAN: 1. Aggressive risk factor modification per most recent ACC/AHA guidelines. 2. Follow-up in the office in 1-2 weeks.
[2021-09-10] MEDS ORDERED: RX INFO: IV CONTRAST WAS GIVEN 1 EACH MISC MISCELLANE PRN (10:45)
[2021-09-10 12:19] VITALS: BP 159/100; PULSE 76; RESP 16
[2021-09-10 12:21] LABS: Glucose,Whole Blood 139 mg/dL (75-99)
--- NOTE | 2021-09-10 12:30 | P.DS ---
<Dennis Chan - Last Filed: 09/10/21 11:34> Providers Expected date of discharge: 09/10/21 Hospital Course: Discharge Diagnosis: Chest pain, ACS ruled out Llh-ickowgg-kwbcyvsdh diabetes mellitus type 2 Hypertension Diabetic foot ulcer right great toe, continue to follow up with PCP and wound care for treatment of ulcer Hospital Course: Patient is a very pleasant 46-year-old male with a past medical history of type II wgq-hrlryta-dviawtpci diabetes mellitus and hypertension. Patient presented to the emergency department on 09/08/21 with a chief complaint of chest pain. Patient reports that he was shoveling snow and had sudden onset pain to mid anterior chest radiating into his back between his shoulders. Patient describes this pain as a pressure-like soreness that was constant and did not go away with rest. Patient states at first she thought this was a pulled muscle, but after the pain did not subside with resting and was accompanied by mild diaphoresis he thought it was best to come into the emergency department for evaluation as an addition to his history of diabetes and hypertension and currently undergoing treatment of an ulcer on his right great toe, he also has a family history of heart disease and states his father had his first heart attack in his early 40s. In the emergency department, patient was seen and fully evaluated. Troponins were trended with initial troponin of 0.013, less than 0.012, and less than 0.012. An EKG was completed showing normal sinus rhythm at 82 bpm with no noted T wave or ST abnormality showing no signs of acute ischemia. Chest x-ray negat korey for acute cardiopulmonary process. Patient admitted under our services with consultation to cardiology. Echocardiogram was completed revealing an EF of 55- 60% with trace mitral and tricuspid regurgitation. Patient underwent stress test which revealed concerns for abnormal stress echo with inducible ischemia and anterior septal wall hypokinesis. Patient then underwent cardiac catheterization which was reported as revealing normal coronary arteries with normal left sided filling pressures. Cardiology recommending continued aggressive risk factor modification per AHA guidelines. Patient stable for discharge at this time and to continue atorvastatin, invokana, Synjardy, hypothyroid and lisinopril. Patient follow-up with PCP in 2 days and with cardiology in 2 weeks. Physical exam: Patient was seen and fully evaluated at the bedside upon returning from cardiac cath. Patient reports chest pain free since arriving to the hospital and denies having any headache, lightheadedness, dizziness, palpitations, or shortness of breath. TR pain in place to right wrist with no noted bleeding or hematoma. Patient denies having any numbness or tingling in his extremities. Patient has been cleared from cardiac standpoint for discharge and advised to follow-up in office in 2 weeks. Patient medically stable for discharge home after recommended monitoring time post cardiac cath. Vital signs reviewed and stable. General: Nontoxic, no distress and appears stated age. TR band in place to right wrist no signs of bleeding or hematoma. Derm: Skin warm and dry, normal coloration for ethnicity. Head: Atraumatic, normocephalic and symmetric. Eyes: EOMs intact, no lid lag, and anicteric sclera Mouth: no lip lesions, mucus membranes moist Cardiovascular: regular rate and rhythm with normal S1S2, no murmur, positive posterior tibial pulses bilaterally, and cap refill < 2 seconds. Lungs: Respirations even, regular, and unlabored on room air. Lungs CTA bilaterally, no rhonchi, no rales, no wheezing, and no accessory muscle usage. Abdominal: soft, nontender to palpation, no guarding, no appreciable organomegaly Ext: ROM intact. No gross muscle atrophy, no edema, no contractures Neuro: Speech clear, face symmetrical and CN II-XII grossly intact with no noted focal neuro deficits Psych: Alert and oriented to person, place, time, and situation. Appropriate and pleasant affect. A total of 45 minutes of time were spent preparing this complex discharge summary. Patient Condition at Discharge: Stable Plan - Discharge Summary Discharge Rx Participant: No New Discharge Prescriptions: Continue Tadalafil [Cialis] 20 mg PO DAILY PRN PRN Reason: ED lisinopriL 40 mg PO DAILY glipiZIDE XL [Glucotrol XL] 5 mg PO DAILY Empagliflozin/Metformin HCl [Synjardy 12.5-1,000 mg Tablet] 1 tab PO BID Canagliflozin [Invokana] 300 mg PO DAILY Atorvastatin [Lipitor] 10 mg PO DAILY Dulaglutide [Trulicity] 1.5 mg SQ SA Discharge Medication List Atorvastatin [Lipitor] 10 mg PO DAILY 09/08/21 [History] Canagliflozin [Invokana] 300 mg PO DAILY 09/08/21 [History] Dulaglutide [Trulicity] 1.5 mg SQ SA 09/08/21 [History] Empagliflozin/Metformin HCl [Synjardy 12.5-1,000 mg Tablet] 1 tab PO BID 09/08/21 [History] Tadalafil [Cialis] 20 mg PO DAILY PRN 09/08/21 [History] glipiZIDE XL [Glucotrol XL] 5 mg PO DAILY 09/08/21 [History] lisinopriL 40 mg PO DAILY 09/08/21 [History] Follow up Appointment(s)/Referral(s): Richard Ray DO [STAFF PHYSICIAN] - 1 Week (office will call to schedule) Seth Hammond MD [Primary Care Provider] - 1-2 days Patient Instructions/Handouts: Acute Coronary Syndrome (DC) Activity/Diet/Wound Care/Special Instructions: Activity: As tolerated. Take breaks as needed. Diet: Heart healthy and carb consistent diet. Avoid salts, or foods with hidden salts such as canned or boxed foods and frozen dinners. Extra salt makes your heart work harder and traps the fluid in your body for longer. Special Instructions: Take all of your medications as directed and remember to keep all of your doctor's appointments and follow-up as needed. Wishing you a happy and healthy New Year!!!!! Thank you for allowing us to participate in your care, it was truly a pleasure having you for our patient!!! Discharge Disposition: HOME SELF-CARE <Sindhu Hernandezjulio - Last Filed: 09/10/21 14:49> Providers Date of admission: 09/08/21 20:16 Attending physician: Adam Regalado MD Consults: 09/08/21 19:03 Consult Physician Routine Consulting Provider: Montez Rosenthal Consult Reason/Comments: ACS Do you want consulting provider notified?: Yes Primary care physician: Seth Hammond Va Hospital Course: I reviewed the documentation as provided by the ZARIA above, who is the original author of this note. I agree with the documented assessment and plan, with the following changes: None
[2021-09-10] MEDS: SODIUM CHLORIDE 0.9% 1,000 ML IV SCH (13:14)
== END 2021-09-10 14:33 | disposition home or self-care (01) ==
LOC: EC 17:33 → 6NMEDSUR 20:16
PROVIDERS: ADMIT Internal Medicine; ATTEND Internal Medicine
DX: R07.2 Precordial pain (principal); R94.39 Abnormal result of other cardiovascular function study; E11.621 Type 2 diabetes mellitus with foot ulcer; L97.519 Non-pressure chronic ulcer of other part of right foot with unspecified severity; Z20.822 Contact with and (suspected) exposure to COVID-19; I10 Essential (primary) hypertension; I25.2 Old myocardial infarction; E03.9 Hypothyroidism, unspecified; E78.5 Hyperlipidemia, unspecified; E66.9 Obesity, unspecified; Z68.36 Body mass index [BMI] 36.0-36.9, adult; Z79.84 Long term (current) use of oral hypoglycemic drugs; Z79.899 Other long term (current) drug therapy; Z83.3 Family history of diabetes mellitus; Z82.49 Family history of ischemic heart disease and other diseases of the circulatory system
CPT/HCPCS: 96376; 96361 ×2; 96374; 99285; 36415; 93005; 93458; 80061; 80053 ×2; 80048; 83735 ×2; 84484 ×2; 85025 ×2; 85027; 85610; 85730 ×2; 87635; 71046; G0378 ×3; C8929; C8930; C1894; J2250; J2001; J3010; J1644 ×4; Q9950; Q9967; 93306; 93351

== ENCOUNTER → 2022-02-07 | Outpatient (CLI) | payer OTHER ==
--- NOTE | 2022-02-07 12:54 | XR ---
Right foot HISTORY: E11.621 Diabetes mellitus with foot ulcer 3 views the right foot, no comparisons Degenerative changes present at the metatarsophalangeal joint of the first digit. Soft tissue swellin g is present at the first digit. There is no periostitis to suggest osteomyelitis. Digits are flexed. Degenerative changes are present at the intertarsal joints. There is a plantar calcaneus spur. There are vascular calcifications are noted incidentally in the soft tissues. Patient shows accessory jaylan cular bone incidentally with some osteophytic changes. IMPRESSION: Correlate for cellulitis. Consider bone scan as indicated.
== END | disposition home or self-care (01) ==
LOC: RADXRMAIN 10:45
PROVIDERS: ATTEND Podiatrist
DX: E11.621 Type 2 diabetes mellitus with foot ulcer (principal); L97.509 Non-pressure chronic ulcer of other part of unspecified foot with unspecified severity

== ENCOUNTER → 2022-04-04 | Outpatient (CLI) | payer OTHER ==
[2022-04-04 17:52] LABS: Basophils # (A) 0.03 X 10*3/uL (0.00-0.10); Basophils % (A) 0.5 %; Eosinophils # (A) 0.23 X 10*3/uL (0.04-0.35); Eosinophils % (A) 3.5 %; HCT 50.5 % (39.6-50.0); HGB 16.8 g/dL (13.0-17.0); Immature Grans, Automated 0.3 %; Lymphocytes # (A) 1.43 X 10*3/uL (0.90-5.00); Lymphocytes % (A) 21.6 %; MCH 29.4 pg (27.0-32.0); MCHC 33.3 g/dL (32.0-37.0); MCV 88.3 fL (80.0-97.0); Mean Platelet Volume 11.7 fL (9.5-12.2); Monocytes # (A) 0.48 X 10*3/uL (0.20-1.00); Monocytes % (A) 7.3 %; NRBC Per 100 WBC 0 /100 WBCS (0.0-0.0); Neutrophils # (A) 4.43 X 10*3/uL (1.80-7.70); Neutrophils % (A) 66.8 %; Platelet Count 170 X 10*3/uL (140-440); RBC 5.72 X 10*6/uL (4.40-5.60); RDW 13.1 % (11.5-14.5); WBC 6.62 X 10*3/uL (4.50-10.00)
[2022-04-04 18:14] LABS: ALT 18 U/L (10-49); AST 20 U/L (14-35); African American GFR (CKD) 68.2 (60.0-200.0); Albumin 4.4 g/dL (3.8-4.9); Albumin/Globulin Ratio 1.61 (1.60-3.17); Alkaline Phosphatase 71 U/L (41-126); BUN/Creat Ratio 14.93 Ratio (12.00-20.00); Blood Urea Nitrogen 21.2 mg/dL (9.0-27.0); C Reactive Protein <0.30 mg/dL (0.00-0.80); Calcium 10.1 mg/dL (8.7-10.3); Carbon Dioxide 26.1 mmol/L (20.0-27.5); Chloride 104 mmol/L (96-109); Chol/HDL Ratio 3.79 Ratio; Creatine Kinase 49 U/L (35-257); Globulin 2.7 g/dL (1.6-3.3); Glucose 104 mg/dL (70-110); LDL Cholesterol,Calculated 76.6 mg/dL (0.0-131.0); Non-African American GFR(CKD) 58.8 (60.0-200.0); Potassium 5.4 mmol/L (3.5-5.5); Sodium 140 mmol/L (135-145); Total Protein 7.1 g/dL (6.2-8.2)
== END | disposition home or self-care (01) ==
LOC: LABWHC1 11:45
PROVIDERS: ATTEND Family Medicine
DX: I10 Essential (primary) hypertension (principal); E78.00 Pure hypercholesterolemia, unspecified
CPT/HCPCS: 36415; 80053; 80061; 82550; 85025; 86140

== ENCOUNTER → 2022-08-14 | Outpatient (CLI) | payer OTHER ==
--- NOTE | 2022-08-18 09:48 | US ---
EXAMINATION TYPE: US arterial LE single level DATE OF EXAM: 08/14/2022 2:35 PM CLINICAL HISTORY: I73.89 OTHER SPECIFIED PERIPHERAL VASCULAR DISEASE. Non-healing right toe ulcer. Hi story of diabetes. Doppler Waveforms: Right: Multiphasic Left: Multiphasic Ankle-Brachial Indices: Right: 1.33 Left: 1.56 Toe Brachial Indices: Right: 0.94 Left: 0.85 IMPRESSION: Elevated left-sided JAYLIN consistent with noncompressible vessels. Cannot exclude signific ant stenosis. Further workup and follow-up advised. Normal bilateral TBI values.
== END | disposition home or self-care (01) ==
LOC: RADUSWWP 13:42
PROVIDERS: ATTEND Podiatrist
DX: E11.42 Type 2 diabetes mellitus with diabetic polyneuropathy (principal); L97.512 Non-pressure chronic ulcer of other part of right foot with fat layer exposed; I73.89 Other specified peripheral vascular diseases
CPT/HCPCS: 93922

== ENCOUNTER → 2023-03-12 | Outpatient (CLI) | payer OTHER ==
--- NOTE | 2023-03-12 13:29 | US ---
EXAMINATION TYPE: US venous doppler duplex LE RT DATE OF EXAM: 03/12/2023 12:55 PM COMPARISON: NONE CLINICAL INDICATION: Male, 47 years old with history of M79.661 PAIN IN RT LOWER LEG; Right lower leg pain and swelling SIDE PERFORMED: Right TECHNIQUE: The lower extremity deep venous system is examined utilizing real time linear array sonog suzanne with graded compression, doppler sonography and color-flow sonography. VESSELS IMAGED: Common Femoral Vein Deep Femoral Vein Greater Saphenous Vein * Femoral Vein Popliteal Vein Small Saphenous Vein * Proximal Calf Veins (* superficial vessels) Grayscale, color doppler, spectral doppler imaging performed of the deep veins of the lower extremit ies. There is normal flow, compressibility, vascular waveforms. Right Leg: Appears negative for DVT IMPRESSION: No ultrasound evidence for deep venous thrombosis of the right lower extremity.
== END | disposition home or self-care (01) ==
LOC: RADUSWWP 12:52
PROVIDERS: ATTEND Family Medicine
DX: M79.661 Pain in right lower leg (principal)

== ENCOUNTER → 2023-09-02 | Outpatient (CLI) | payer OTHER ==
--- NOTE | 2023-09-02 09:29 | US ---
EXAMINATION TYPE: US renal artery duplex complet DATE OF EXAM: 09/02/2023 COMPARISON: NONE CLINICAL INDICATION: Male, 48 years old with history of I10 ESSENTIAL (PRIMARY) HYPERTENSION; HTN- on meds. Recently had elevated BP with meds altered. MEASUREMENTS: RENAL SIZE: Right Kidney: 13.2 x 5.7 x 5.9 cm Left Kidney: 13.8 x 5.5 x 6.2 cm Right Kidney: No hydronephrosis or lesions seen Left Kidney: No hydronephrosis or lesions seen Abd Aorta: No AAA visualized, limited proximal visualization due to bowel gas RESISTANCE INDEX Right: 0.65 Left: 0.66 RA/AO RATIO (< 3.5 ) Right: 2.2 Left: 2.5 RENAL ARTERY VELOCITY ( < 180 cm/s) Right: 138.1 Left: 153.4 IMPRESSION: No evidence for renal artery stenosis.
== END | disposition home or self-care (01) ==
LOC: RADUSWWP 07:54
PROVIDERS: ATTEND Family Medicine
DX: I10 Essential (primary) hypertension (principal)
CPT/HCPCS: 93975

== ENCOUNTER → 2023-11-05 | Outpatient (CLI) | payer OTHER ==
--- NOTE | 2023-11-06 08:50 | NM ---
EXAMINATION TYPE: NM WBC limited DATE OF EXAM: 11/05/2023 COMPARISON: Foot radiographs 02/07/2022. CLINICAL INDICATION: Male, 48 years old with history of M86.00 OSTEOMYELITIS; TECHNIQUE: Following administration of 18.6 mCi Tc99m Ceretec. Images obtained 3 hours post injecti on. FINDINGS: No focal uptake of radiotracer to suggest osteomyelitis. The right great toe is relatively unremarka ble. IMPRESSION: New abnormal radiotracer uptake to suggest a cementless.
== END | disposition home or self-care (01) ==
LOC: RADNMMAIN 06:48
PROVIDERS: ATTEND Podiatrist
DX: M86.00 Acute hematogenous osteomyelitis, unspecified site (principal)
CPT/HCPCS: 78300; A9569

== ENCOUNTER 2023-12-02 11:12 | Emergency (ER) | payer OTHER ==
[2023-12-02] MEDS: ASPIRIN 81 MG PO STA (12:25)
[2023-12-02] MEDS: SODIUM CHLORIDE 0.9% 1,000 ML IV STA (12:25)
[2023-12-02] MEDS: NITROGLYCERIN SL TABS 0.4 MG TAB SUBLINGUAL STA (12:26)
[2023-12-02 12:31] LABS: Basophils % (A) 1 %; Eosinophils # (A) 0.2 k/uL (0-0.7); Eosinophils % (A) 4 %; HCT 45.8 % (39.0-53.0); HGB 15.7 gm/dL (13.0-17.5); Lymphocytes # (A) 1.2 k/uL (1.0-4.8); Lymphocytes % (A) 20 %; MCH 29.7 pg (25.0-35.0); MCHC 34.2 g/dL (31.0-37.0); MCV 86.8 fL (80.0-100.0); Mean Platelet Volume 9.6; Monocytes # (A) 0.5 k/uL (0-1.0); Monocytes % (A) 7 %; Neutrophils % (A) 66 %; Platelet Count 134 k/uL (150-450); RBC 5.28 m/uL (4.30-5.90); RDW 13.8 % (11.5-15.5)
[2023-12-02 12:33] LABS: Prothrombin Time 10.8 sec (10.0-12.5)
[2023-12-02 12:47] LABS: ALT 35 U/L (4-49); AST 28 U/L (17-59); African American GFR (CKD) >90 (>60 ml/min/1.73 sqM); Albumin 4.3 g/dL (3.5-5.0); Alkaline Phosphatase 65 U/L (38-126); Anion Gap 9 mmol/L; Blood Urea Nitrogen 16 mg/dL (9-20); Calcium 9.4 mg/dL (8.4-10.2); Carbon Dioxide 23 mmol/L (22-30); Chloride 102 mmol/L (98-107); Glucose 188 mg/dL (74-99); Lipase 176 U/L (23-300); Magnesium 1.6 mg/dL (1.6-2.3); Non-African American GFR(CKD) 89 (>60 ml/min/1.73 sqM); Potassium 4.3 mmol/L (3.5-5.1); Sodium 134 mmol/L (137-145); Total Protein 7.3 g/dL (6.3-8.2)
[2023-12-02 12:53] LABS: NT-Pro-B-Type Natriuretic Pept 35 pg/mL
[2023-12-02] MEDS: KETOROLAC 15 MG/ML 1 ML VIAL IVP STA (13:14)
--- NOTE | 2023-12-02 13:52 | ED ---
General Adult HPI - General Chief complaint: Chest Pain Stated complaint: Chest Pain, sent by Dr Peoples Seen by Provider: 12/02/23 11:40 Source: patient, RN notes reviewed, old records reviewed Mode of arrival: ambulatory Limitations: no limitations - History of Present Illness Initial comments: Patient is a 48-year-old male who presents emergency department complaining of chest pain. Seems to be a chest wall type pain. Located over the left side of his chest. Worse with movements as well as with pressure. Has been present for over 1 day. Denies any associated symptoms including radiation of the pain, nausea, vomiting, shortness of breath, fevers, chills, cough. Presents for further evaluation at this time. No cardiac history. History of diabetes. - Related Data Home Medications Medication Instructions Recorded Confirmed Atorvastatin [Lipitor] 10 mg PO DAILY@129909/08/21 12/02/23 Empagliflozin [Jardiance] 25 mg PO DAILY@129912/02/23 12/02/23 Ibuprofen [Motrin] 800 mg PO Q8H PRN 12/02/23 12/02/23 Metoprolol Succinate [Toprol XL] 200 mg PO DAILY@129912/02/23 12/02/23 Omeprazole [PriLOSEC] 40 mg PO DAILY@129912/02/23 12/02/23 Semaglutide [Ozempic] 2 mg SQ WE 12/02/23 12/02/23 amLODIPine BESYLATE/BENAZEPRIL 1 cap PO DAILY@129912/02/23 12/02/23 [Lotrel 10-40 mg Capsule] metFORMIN HCL [Glucophage] 500 mg PO DAILY@129912/02/23 12/02/23 Allergies Allergy/AdvReac Type Severity Reaction Status Date / Time No Known Allergies Allergy Verified 12/02/23 16:43 Review of Systems ROS Statement: Those systems with pertinent positive or pertinent negative responses have been documented in the HPI. Review of Systems: CONST: Denies fever EYES: Denies blurry vision ENT: Denies nasal congestion C/V: Endorses chest pain RESP: Denies shortness of breath GI: Denies abdominal pain : Denies dysuria SKIN: Denies rash. MSK: Denies joint pain. NEURO: Denies headache ROS Other: All systems not noted in ROS Statement are negative. Past Medical History Past Medical History: Diabetes Mellitus History of Any Multi-Drug Resistant Organisms: None Reported Past Psychological History: No Psychological Hx Reported Smoking Status: Never smoker Past Alcohol Use History: Occasional Past Drug Use History: None Reported - Past Family History Family Additional Family Medical History / Comment(s): Father with premature CAD General Exam - General Exam Comments Initial Comments: General: Appears in no acute distress. HEAD: Normal with no signs of head trauma. EYES: PERRLA, EOMI, conjunctiva normal, no discharge. ENT: Hearing grossly intact, normal oropharynx. RESPIRATORY: Clear breath sounds bilaterally. No wheezes, rales, or rhonchi. C/V: Regular rate and rhythm. S1 and S2 auscultated, no edema, peripheral pulses 2+ and intact throughout ABD: Abd is soft, nontender, nondistended EXT: Normal range of motion, no obvious deformity. Chest pain is reproducible on palpation. SKIN: No rashes or lesions observed on exposed skin. NEURO: Alert and oriented x 4. Limitations: no limitations Course Vital Signs 12/02/23 12/02/23 12/02/23 11:17 13:27 15:12 Temperature 97.8 F 97.5 F L Pulse Rate 82 76 77 Respiratory 16 18 Rate Blood Pressure 138/89 116/79 125/85 O2 Sat by Pulse 99 96 96 Oximetry 12/02/23 17:12 Temperature 97.5 F L Pulse Rate 77 Respiratory 16 Rate Blood Pressure 126/70 O2 Sat by Pulse 99 Oximetry Medical Decision Making - Medical Decision Making Was pt. sent in by a medical professional or institution (JERONIMO Riddle, TELEGRAPHIC TYPEWRITER INSTALLER, urgent care, hospital, or skilled nursing...) When possible be specific @ -Sent in by the midlevel provider from his PCPs office for evaluation. Did you speak to anyone other than the patient for history (EMS, parent, family, police, friend...)? What history was obtained from this source @ -No Did you review nursing and triage notes (agree or disagree)? Why? @ -I reviewed and agree with nursing and triage notes Were old charts reviewed (outside hosp., previous admission, EMS record, old EKG, old radiological studies, urgent care reports/EKG's, skilled nursing records)? Report findings @ -Old charts reviewed Differential Diagnosis (chest pain, altered mental status, abdominal pain women, abdominal pain men, vaginal bleeding, weakness, fever, dyspnea, syncope, headache, dizziness, GI bleed, back pain, seizure, CVA, palpatations, mental health, musculoskeletal)? @ -Differential Chest Pain: Stable Angina, Unstable Angina, STEMI, NSTEMI Aortic Dissection, Pneumothorax, Musculoskeletal, Esophageal Spasm GERD, Cholecystitis, Pancreatitis, Zoster, this is not meant to be an all-inclusive list. EKG interpreted by me (3pts min.). @ -As above X-rays interpreted by me (1pt min.). @ -Chest x-ray reveals no obvious acute cardiopulmonary process. CT interpreted by me (1pt min.). @ -None done U/S interpreted by me (1pt. min.). @ -None done What testing was considered but not performed or refused? (CT, X-rays, U/S, labs)? Why? @ -None What meds were considered but not given or refused? Why? @ -None Did you discuss the management of the patient with other professionals (professionals i.e. , PA, TELEGRAPHIC TYPEWRITER INSTALLER, lab, RT, psych nurse, home health care social worker, high school band teacher, teacher, traffic division commanding officer, watch caser)? Give summary @ -No Was smoking cessation discussed for >3mins.? @ -No Was critical care preformed (if so, how long)? @ -No Were there social determinants of health that impacted care today? How? (Homelessness, low income, unemployed, alcoholism, drug addiction, transportation, low edu. Level, literacy, decrease access to med. care, group home, rehab)? @ -No Was there de-escalation of care discussed even if they declined (Discuss DNR or withdrawal of care, Hospice)? DNR status @ -No What co-morbidities impacted this encounter? (DM, HTN, Smoking, COPD, CAD, Cancer, CVA, ARF, Chemo, Hep., AIDS, mental health diagnosis, sleep apnea, morbid obesity)? @ -None Was patient admitted / discharged? Hospital course, mention meds given and route, prescriptions, significant lab abnormalities, going to OR and other pertinent info. @ -Based on the patient's presentation and physical exam, presents with what appears to be chest wall pain. It is on the left side of his chest. Will obtain cardiac workup. He was in agreement this plan. We attempted nitro tablets for treatment of the pain which had no effect. Patient administered 324 mg of aspirin, IV Toradol, IV fluids. EKG showed no signs of acute ischemia. Patient's laboratory studies remarkable for undetectable troponin. Chest x-ray shows no obvious acute cardiopulmonary process. On reevaluation, patient is feeling improved after Toradol. I did discuss with him his results. I did offer him admission at this time for observation however he would prefer to go home. We both agreed to obtain at least a second troponin at this time. Patient was in agreement this plan. Repeat troponin is still pending at this time. Patient signed out to Dr. Pierre pending results of repeat labs. After my shift, Repeat troponin remained undetectable and patient was discharged home. Undiagnosed new problem with uncertain prognosis? @ -No Drug Therapy requiring intensive monitoring for toxicity (Heparin, Nitro, Insulin, Cardizem)? @ -No Were any procedures done? @ -No Diagnosis/symptom? @ -Chest wall pain Acute, or Chronic, or Acute on Chronic? @ -Acute Uncomplicated (without systemic symptoms) or Complicated (systemic symptoms)? @ -Uncomplicated Side effects of treatment? @ -No Exacerbation, Progression, or Severe Exacerbation? @ -No Poses a threat to life or bodily function? How? (Chest pain, [place], [place], pneumonia, PE, COPD, DKA, ARF, appy, cholecystitis, CVA, Diverticulitis, Homicidal, Suicidal, threat to staff... and all critical care pts) @ -Unlikely - Lab Data Result diagrams: 12/02/23 12:07 12/02/23 12:07 Lab Results 12/02/23 12/02/23 12/02/23 Range/Units 12:07 12:07 12:07 WBC 6.0 (3.8-10.6) k/uL RBC 5.28 (4.30-5.90) m/uL Hgb 15.7 (13.0-17.5) gm/dL Hct 45.8 (39.0-53.0) % MCV 86.8 (80.0-100.0) fL MCH 29.7 (25.0-35.0) pg MCHC 34.2 (31.0-37.0) g/dL RDW 13.8 (11.5-15.5) % Plt Count 134 L (150-450) k/uL MPV 9.6 Neutrophils % 66 % Lymphocytes % 20 % Monocytes % 7 % Eosinophils % 4 % Basophils % 1 % Neutrophils # 4.0 (1.3-7.7) k/uL Lymphocytes # 1.2 (1.0-4.8) k/uL Monocytes # 0.5 (0-1.0) k/uL Eosinophils # 0.2 (0-0.7) k/uL Basophils # 0.0 (0-0.2) k/uL PT 10.8 (10.0-12.5) sec INR 1.0 (<1.2) APTT 26.0 (22.0-30.0) sec Sodium 134 L (137-145) mmol/L Potassium 4.3 (3.5-5.1) mmol/L Chloride 102 (98-107) mmol/L Carbon Dioxide 23 (22-30) mmol/L Anion Gap 9 mmol/L BUN 16 (9-20) mg/dL Creatinine 1.00 (0.66-1.25) mg/dL Est GFR (CKD-EPI)AfAm >90 (>60 ml/min/1.73 sqM) Est GFR (CKD-EPI)NonAf 89 (>60 ml/min/1.73 sqM) Glucose 188 H (74-99) mg/dL Calcium 9.4 (8.4-10.2) mg/dL Magnesium 1.6 (1.6-2.3) mg/dL Total Bilirubin 1.0 (0.2-1.3) mg/dL AST 28 (17-59) U/L ALT 35 (4-49) U/L Alkaline Phosphatase 65 (38-126) U/L Troponin I (0.000-0.034) ng/mL NT-Pro-B Natriuret Pep 35 pg/mL Total Protein 7.3 (6.3-8.2) g/dL Albumin 4.3 (3.5-5.0) g/dL Lipase 176 (23-300) U/L 12/02/23 12/02/23 Range/Units 12:07 15:05 WBC (3.8-10.6) k/uL RBC (4.30-5.90) m/uL Hgb (13.0-17.5) gm/dL Hct (39.0-53.0) % MCV (80.0-100.0) fL MCH (25.0-35.0) pg MCHC (31.0-37.0) g/dL RDW (11.5-15.5) % Plt Count (150-450) k/uL MPV Neutrophils % % Lymphocytes % % Monocytes % % Eosinophils % % Basophils % % Neutrophils # (1.3-7.7) k/uL Lymphocytes # (1.0-4.8) k/uL Monocytes # (0-1.0) k/uL Eosinophils # (0-0.7) k/uL Basophils # (0-0.2) k/uL PT (10.0-12.5) sec INR (<1.2) APTT (22.0-30.0) sec Sodium (137-145) mmol/L Potassium (3.5-5.1) mmol/L Chloride (98-107) mmol/L Carbon Dioxide (22-30) mmol/L Anion Gap mmol/L BUN (9-20) mg/dL Creatinine (0.66-1.25) mg/dL Est GFR (CKD-EPI)AfAm (>60 ml/min/1.73 sqM) Est GFR (CKD-EPI)NonAf (>60 ml/min/1.73 sqM) Glucose (74-99) mg/dL Calcium (8.4-10.2) mg/dL Magnesium (1.6-2.3) mg/dL Total Bilirubin (0.2-1.3) mg/dL AST (17-59) U/L ALT (4-49) U/L Alkaline Phosphatase (38-126) U/L Troponin I <0.012 <0.012 (0.000-0.034) ng/mL NT-Pro-B Natriuret Pep pg/mL Total Protein (6.3-8.2) g/dL Albumin (3.5-5.0) g/dL Lipase (23-300) U/L - EKG Data -: EKG Interpreted by Me EKG Comments: 12-lead Electrocardiogram Interpretation Note EKG was reviewed and interpreted by myself. 12-lead ECG performed at 1123 is interpreted by me as revealing normal sinus rhythm at a rate of 81 beats per minute. [place] is normal. [place] interval is 181 ms, QRS duration is 104 ms, QTc is 390 ms.. There were no ST or T wave abnormalities to suggest myocardial ischemia or injury. R wave progression across the precordium was satisfactory. By my interpretation this EKG is non-diagnostic for acute ischemia. Disposition Clinical Impression: Chest wall pain Disposition: HOME SELF-CARE Instructions (If sedation given, give patient instructions): Angina (ED) Is patient prescribed a controlled substance at d/c from ED?: No Referrals: Seth Hammond MD [Primary Care Provider] - 1-2 days
[2023-12-02 15:17] VITALS: PULSE 77; TEMP 97.5
[2023-12-02 17:35] VITALS: BP 126/70; RESP 16
--- NOTE | 2023-12-04 08:18 | XR ---
EXAMINATION TYPE: XR chest 2V DATE OF EXAM: 12/02/2023 COMPARISON: 09/08/2019 TECHNIQUE: PA and lateral views submitted. HISTORY: Chest pain FINDINGS: A limited inspiration. The lungs are clear and there is no pneumothorax, pleural effusion, or focal pneumonia. Heart size normal and no overt failure. Osseous structures demonstrate hypertrophic and d egenerative changes of the spine. IMPRESSION: 1. No acute process.
== END 2023-12-02 17:14 | disposition home or self-care (01) ==
LOC: EC 11:12
DX: R07.89 Other chest pain (principal)
CPT/HCPCS: 36415; 93005; 83880; 80053; 83690; 83735; 84484; 85025; 85610; 85730; 71046; 99285; 96374; 96361; J1885

== ENCOUNTER → 2024-04-01 | Outpatient (CLI) | payer OTHER ==
[2024-04-01 14:47] LABS: Basophils # (A) 0.04 X 10*3/uL (0.00-0.10); Basophils % (A) 0.7 %; Eosinophils % (A) 3.4 %; HCT 46.3 % (39.6-50.0); HGB 15.8 g/dL (13.0-17.0); Lymphocytes % (A) 22.1 %; MCH 29.5 pg (27.0-32.0); MCHC 34.1 g/dL (32.0-37.0); MCV 86.4 FL (80.0-97.0); Mean Platelet Volume 12.1 FL (9.5-12.2); Monocytes # (A) 0.45 X 10*3/uL (0.20-1.00); Monocytes % (A) 7.6 %; NRBC Per 100 WBC 0 X 10*3/uL (0.00-0.01); Neutrophils # (A) 3.87 X 10*3/uL (1.80-7.70); Neutrophils % (A) 65.7 %; Platelet Count 149 X 10*3/uL (140-440); RBC 5.36 X 10*6/uL (4.40-5.60); WBC 5.89 X 10*3/uL (4.50-10.00)
[2024-04-01 17:32] LABS: ALT 41 U/L (10-49); AST 31 U/L (14-35); Albumin 4.3 g/dL (3.8-4.9); Albumin/Globulin Ratio 1.54 Ratio (1.60-3.17); Alkaline Phosphatase 71 U/L (41-126); BUN/Creat Ratio 11.23 Ratio (12.00-20.00); Blood Urea Nitrogen 14.6 mg/dL (9.0-27.0); Calcium 9.6 mg/dL (8.7-10.3); Carbon Dioxide 22.9 mmol/L (21.6-31.8); Chloride 102 mmol/L (96-109); Globulin 2.8 g/dL (1.6-3.3); Glucose 209 mg/dL (70-110); Potassium 4.9 mmol/L (3.5-5.5); Sodium 138 mmol/L (135-145); Total Bilirubin 0.6 mg/dL (0.3-1.2); Total Protein 7.1 g/dL (6.2-8.2)
== END | disposition home or self-care (01) ==
LOC: LABWHC1 11:01
PROVIDERS: ATTEND Podiatrist
DX: E11.621 Type 2 diabetes mellitus with foot ulcer (principal); L97.509 Non-pressure chronic ulcer of other part of unspecified foot with unspecified severity
CPT/HCPCS: 36415; 80053; 83036; 84134; 85025

== ENCOUNTER → 2024-06-06 | Outpatient (CLI) | payer OTHER ==
--- NOTE | 2024-06-06 16:02 | NM ---
EXAMINATION TYPE: NM WBC limited DATE OF EXAM: 06/06/2024 COMPARISON: NONE CLINICAL INDICATION: Male, 49 years old with history of osteomyelitis; TECHNIQUE: Following administration of 13.2 mCi Tc99m Ceretec. Images obtained 3 hours post injecti on. FINDINGS: No abnormal radiotracer uptake seen within the feet. IMPRESSION: No abnormal radiotracer uptake to suggest osteomyelitis. [facility] Dhaval Garcia, , 06/06/2024 3:59 PM
== END | disposition home or self-care (01) ==
LOC: RADNMMAIN 06:53
PROVIDERS: ATTEND Podiatrist
DX: M86.071 Acute hematogenous osteomyelitis, right ankle and foot (principal)
CPT/HCPCS: 78300

== ENCOUNTER → 2024-06-14 | Outpatient (CLI) | payer OTHER ==
[2024-06-14 19:40] LABS: Basophils # (A) 0.04 X 10*3/uL (0.00-0.10); Basophils % (A) 0.6 %; Eosinophils # (A) 0.26 X 10*3/uL (0.04-0.35); HCT 47.2 % (39.6-50.0); Lymphocytes # (A) 1.49 X 10*3/uL (0.90-5.00); Lymphocytes % (A) 23.2 %; MCH 29.8 pg (27.0-32.0); MCHC 33.9 g/dL (32.0-37.0); MCV 87.9 FL (80.0-97.0); Mean Platelet Volume 12.3 FL (9.5-12.2); Monocytes # (A) 0.48 X 10*3/uL (0.20-1.00); Monocytes % (A) 7.5 %; NRBC Per 100 WBC 0 X 10*3/uL (0.00-0.01); Neutrophils # (A) 4.13 X 10*3/uL (1.80-7.70); Neutrophils % (A) 64.2 %; Platelet Count 154 X 10*3/uL (140-440); RBC 5.37 X 10*6/uL (4.40-5.60); RDW 13.4 % (11.5-14.5); WBC 6.43 X 10*3/uL (4.50-10.00)
[2024-06-14 19:50] LABS: Erythrocyte Sedimentation Rate 2 mm/Hr (0-15)
[2024-06-14 21:38] LABS: Prealbumin 25.8 mg/dL (18.0-42.0)
[2024-06-14 22:08] LABS: ALT 53 U/L (10-49); AST 33 U/L (14-35); Albumin 4.5 g/dL (3.8-4.9); Albumin/Globulin Ratio 1.55 Ratio (1.60-3.17); Alkaline Phosphatase 77 U/L (41-126); BUN/Creat Ratio 10.71 Ratio (12.00-20.00); Calcium 9.4 mg/dL (8.7-10.3); Carbon Dioxide 24.1 mmol/L (21.6-31.8); Chloride 101 mmol/L (96-109); Globulin 2.9 g/dL (1.6-3.3); Glucose 191 mg/dL (70-110); Potassium 4.5 mmol/L (3.5-5.5); Sodium 140 mmol/L (135-145); Total Bilirubin 1.2 mg/dL (0.3-1.2); Total Protein 7.4 g/dL (6.2-8.2)
== END | disposition home or self-care (01) ==
LOC: LABWHC1 12:45
PROVIDERS: ATTEND Podiatrist
DX: L97.512 Non-pressure chronic ulcer of other part of right foot with fat layer exposed (principal)
CPT/HCPCS: 36415; 80053; 83036; 84134; 85025; 85652